=== PATIENT | male | born 1965 | race Caucasian/White ===

== ENCOUNTER → 2024-08-20 | Outpatient (CLI) | payer OTHER, SELFPAY ==
[2024-08-20 10:48] LABS: Collection Type, Urine Clean Catch
[2024-08-20 11:08] LABS: Basophils % (Auto) 0 % (0-2.5); Eosinophils # (Auto) 0.1 Thou/mm3 (0.0-0.5); Eosinophils % (Auto) 1 % (0-10); Hematocrit 39.9 % (41.0-53.0); Hemoglobin 13.4 g/dL (13.5-16.0); Immature Granulocytes % (Auto) 1 % (0-0); Immature Granulocytes Auto 0.03 Thou/mm3 (0.00-0.00); Lymphocytes # (Auto) 1.8 Thou/mm3 (1.0-4.8); Lymphocytes % (Auto) 35 % (10-50); Mean Corpuscular HGB Conc 33.6 g/dl (31.0-37.0); Mean Corpuscular Hemoglobin 27.1 pg (25.0-35.0); Mean Corpuscular Volume 81 fL (80-100); Monocytes # (Auto) 0.5 Thou/mm3 (0.0-0.8); Monocytes % (Auto) 10 % (0-12); Neutrophils # (Auto) 2.7 Thou/mm3 (1.8-7.7); Neutrophils % (Auto) 53 % (37-80); Nucleated Red Blood Cell % 0 /100 WBC (0); Platelet Count 162 Thou/mm3 (140-440); RDW Standard Deviation 41.5 fL (35.1-43.9); Red Blood Count 4.94 Miln/mm3 (4.50-5.90); White Blood Count 5.1 Thou/mm3 (3.8-10.6)
[2024-08-20 11:23] LABS: Vitamin D 25 Hydroxy Total 13.4 ng/mL (7.3-40.2)
[2024-08-20 11:26] LABS: Bilirubin,Urine Negative (Negative); Blood,Urine 1+ (Negative); Clarity,Urine Clear (Clear/Hazy); Color,Urine Lt-Yellow (Lt Yel-Yel); Culture Indicated,Urine Not Indicated; Glucose, Urine Negative (Negative); Ketones,Urine 2+ (Negative); Leukocyte Esterase,Urine Negative (Negative); Nitrite,Urine Negative (Negative); Protein,Urine Negative (Neg - Trace); RBC,Urine 5 /hpf (0-3); Specific Gravity,Urine 1.025 (1.001-1.035); Squamous Epithelial Cell,Urine 1 /hpf (0-5); Urobilinogen,Urine Negative mg/dL (0.0-1.0); WBC,Urine < 1 /hpf (0-5)
[2024-08-20 12:52] LABS: Glucose Estimated Average 137 mg/dL (80-131); Hemoglobin A1C 6.4 % Hgb (4.8-6.0)
[2024-08-20 13:59] LABS: Alanine Aminotransferase 37 U/L (10-49); Albumin, Serum 4.9 gm/dL (3.4-4.8); Albumin/Globulin Ratio 2.6 (1.2-2.2); Alkaline Phosphatase 77 U/L (46-116); Anion Gap 13 (7-16); Aspartate Amino Transferase 35 U/L (0-34); BUN/Creatinine Ratio 19 Ratio (12-20); Bilirubin,Total 0.7 mg/dL (0.3-1.2); Blood Urea Nitrogen 19 mg/dL (9-23); Calcium 9.2 mg/dL (8.3-10.6); Calcium (Corrected) 9.2 mg/dL (8.5-10.1); Carbon Dioxide 19.8 mMol/L (20.0-31.0); Cardiac Risk Estimate 3.5 RATIO (4.0-6.7); Chloride 107 mMol/L (98-107); Cholesterol 141 mg/dL (132-200); Free T4 (Free Thyroxine) 1.61 ng/dL (0.89-1.76); Globulin 1.9 gm/dL (2.3-3.5); Glucose 87 mg/dL (74-106); HDL Cholesterol 40 mg/dL (40-60); LDL Cholesterol,Calculated 83 mg/dL (0-130); Osmolality,Calculated 280 (275-295); Potassium 4.2 mMol/L (3.4-5.1); Sodium 140 mMol/L (136-145); Thyroid Stimulating Hormone 0.75 uIU/mL (0.55-4.78); Total Protein 6.8 gm/dL (5.7-8.2); Triglycerides 92 mg/dL (30-150); eGFR > 60 See Note
== END | disposition home or self-care (01) ==
LOC: COPL 10:03
PROVIDERS: PCP Registered Nurse; Referring Provider Registered Nurse; Visit Provider Registered Nurse
DX: Z00.00 Encounter for general adult medical examination without abnormal findings (principal); E03.9 Hypothyroidism, unspecified; E11.9 Type 2 diabetes mellitus without complications; E78.2 Mixed hyperlipidemia
CPT/HCPCS: 36415; 80053; 80061; 81001; 82306; 83036; 84439; 84443; 85025

== ENCOUNTER → 2024-10-24 | Outpatient (BNVA) | payer OTHER, SELFPAY | END | disposition home or self-care (01) | PROVIDERS: PCP Family Medicine; Referring Provider Family Medicine; Visit Provider Urology | DX: N40.1 Benign prostatic hyperplasia with lower urinary tract symptoms (principal); N13.8 Other obstructive and reflux uropathy; Z87.442 Personal history of urinary calculi; E78.00 Pure hypercholesterolemia, unspecified; E03.9 Hypothyroidism, unspecified | CPT/HCPCS: 81003; 99212; G0463 ==

== ENCOUNTER → 2025-02-11 | Outpatient (CLI) | payer OTHER, SELFPAY ==
--- NOTE | 2025-02-11 09:55 | XR_ITS ---
Examination: Lumbar spine, 5 views Technique: Lumbar spine AP, lateral, coned lateral lower lumbar spine, bilateral obliques 5 views Exam date and time: February 11, 2025 1003 hours INDICATIONS: Lower back pain beginning 6 weeks ago. FINDINGS: Multiple gallstones Lumbar dextroscoliosis 12 degrees Mild diffuse facet arthropathy No lumbar fracture Moderate lumbar spondylosis No significant lumbar disc narrowing IMPRESSION: No significant lumbar disc narrowing
== END | disposition home or self-care (01) ==
LOC: CDIM 09:48
PROVIDERS: PCP Registered Nurse; Referring Provider Registered Nurse; Visit Provider Registered Nurse
DX: M54.50 Low back pain, unspecified (principal)
CPT/HCPCS: 72110

== ENCOUNTER → 2025-04-27 | Outpatient (CLI) | payer OTHER, SELFPAY ==
[2025-04-27 09:35] LABS: Prostate Specific Antigen 0.77 ng/mL (0-4.00)
== END | disposition home or self-care (01) ==
LOC: COPL 08:20
PROVIDERS: PCP Family Medicine; Referring Provider Urology; Visit Provider Urology
DX: R97.20 Elevated prostate specific antigen [PSA] (principal)
CPT/HCPCS: 36415; 84153

== ENCOUNTER → 2025-05-01 | Outpatient (BNVA) | payer OTHER, SELFPAY | END | disposition home or self-care (01) | PROVIDERS: PCP Family Medicine; Referring Provider Family Medicine; Visit Provider Urology | DX: Z53.21 Procedure and treatment not carried out due to patient leaving prior to being seen by health care provider (principal) | CPT/HCPCS: 81003; 99212; G0463 ==

== ENCOUNTER 2025-05-27 14:45 | Emergency (ER) | payer OTHER, SELFPAY ==
[2025-05-27 14:50] VITALS: BP 147/82; PULSE 83; RESP 18; TEMP 36.8; O2SAT 100; BMI 23.8
--- NOTE | 2025-05-27 15:03 | EKG_ITS ---
[facility] Test Date: 2025-05-27 Pat Name: MADINA SOUSA Department: Room: - Gender: Male [employer] Att[employer]: : 1965 Requested By: Evans Betancourt Order Number: [id number] Reading MD: Evans Betancourt Measurements Intervals [place] Heart Rate: 85 P: 48 OR: 158 QRS: -5 QRSD: 106 T: 67 QT: 356 QTc: 424 Interpretive Statements SINUS RHYTHM LEFT VENTRICULAR HYPERTROPHY AND ST-T CHANGE [VOLTAGE CRITERIA PLUS ST/T ABNORMALITY] Compared to ECG 12/07/2022 10:36:24 ST (T wave) deviation now present Sinus bradycardia no longer present T-wave abnormality no longer present /store/S0/[id number].pdf
--- NOTE | 2025-05-27 15:07 | PD.EDRME ---
Rapid Medical Screening Exam RME Arrival date/time: 05/27/25 14:45 59-year-old male with a history of hypothyroidism sent in by his PCP for hemoglobin of 7.2 complaint of shortness of breath and palpitations for several days Chief Complaint: Arrhythmia/Palpitations Time Seen by Provider: 05/27/25 14:56 Vital signs: Vital Signs Temperature 98.3 F 05/27/25 14:50 Pulse Rate 83 05/27/25 14:50 Respiratory Rate 18 05/27/25 14:50 Blood Pressure 147/82 H 05/27/25 14:50 Pulse Oximetry (%) 100 05/27/25 14:50 Oxygen Delivery Method Room Air 05/27/25 14:50 Exam: - Clinical Impression: -
[2025-05-27 21:28] VITALS: BP 135/73; PULSE 57; PULSE 65; RESP 20; TEMP 36.7; O2SAT 100
[2025-05-27] MEDS: ACETAMINOPHEN 325 MG TABLET 650 MG PO (21:37)
[2025-05-27 21:53] VITALS: PULSE 60
--- NOTE | 2025-05-27 22:14 | PD.EDARRY ---
ED Arrhythmia Palp. RME/HPI General Chief Complaint: Arrhythmia/Palpitations Stated Complaint: C/O PALPITATIONS, LOW BP; SENT BY PCP Time Seen by Provider: 05/27/25 14:56 Arrival date/time: 05/27/25 14:45 RME / HPI RME / HPI narrative: 05/27/25 14:45 59-year-old male with a history of hypothyroidism sent in by his PCP for hemoglobin of 7.2 complaint of shortness of breath and palpitations for several days DR. GUERRA MAIN ED EVALUATION: Patient presenting with Hx of hemorrhoidal disease presents with ongoing palpitations, shortness of breath, and lightheadedness worsening with exertion of progressively increasing intensity over the last several weeks. Reports bright red blood per rectum which has appeared to have tapered since. Patient seen by PMD who had drawn blood work and showed sign of anemia prompting transport to ED. No hematemesis, fever, or chills PMH: Transient Ischemic Attacks, Hypercholesterolemia, Sleep Apnea, Hemorrhoids, Kidney Stones, Retinal Detachment, Hypothyroidism PSH: Vasectomy, ORIF of tibia and shoulder Allergies: NKDA Social: Negative Exam: - Impression: - Related Data Home Medications ?Medication ?Instructions ?Recorded ?Confirmed gemfibrozil 600 mg tablet 600 mg PO DAILY 12/07/22 05/01/25 aspirin 81 mg tablet,delayed 81 mg PO QDAY 04/26/23 05/01/25 release atorvastatin 40 mg tablet 40 mg PO QDAY 04/26/23 05/01/25 levothyroxine 125 mcg capsule 125 mcg PO QDAY 04/26/23 05/01/25 Previous Rx's ?Medication ?Instructions ?Recorded tamsulosin 0.4 mg capsule (Flomax) 0.4 mg PO QDAY #90 caps 05/24/23 hydrocortisone acetate 25 mg 25 mg OR QDAY Hemorrhoids #12 ea 05/27/25 rectal suppository (Anusol-HC) pantoprazole 20 mg tablet,delayed 20 mg PO QDAY #30 tabs 05/27/25 release Allergies Allergy/AdvReac Type Severity Reaction Status Date / Time No Known Allergies Allergy Verified 05/27/25 14:47 Review of Systems Review of Systems Systems Reviewed: All systems reviewed, normal except as documented Past Medical History Past Medical History NEUROLOGIC: Positive Neurological Disorders and Transient Ischemic Attacks (TIA) (x2, last September 2022) CARDIAC: Positive Cardiac Disorders and Hypercholesterolemia (trigycerides) RESPIRATORY: Positive Sleep Apnea (no cpap, could not sleep with it 15 yrs ago) GASTROINTESTINAL: Positive Gastrointestinal Disorders and Hemorrhoids GENITOURINARY: Positive Genitourinary Disorders and Kidney Stones MUSCULOSKELETAL: Positive Musculoskeletal Disorders and Fractures (Recent left shoulder sx, left leg fx) ENT: Positive Retinal Detachment (right eye) ENDOCRINE: Positive Endocrine Disorders and Hypothyroidism OTHER HISTORY: Positive Hospitalization (TIA), Shingles, Chicken Pox, Measles and Mumps Family History FAMILY HISTORY: Positive Family Cancer and Family Surgery Surgical History SURGICAL: Positive Ear Surgery, Eye Surgery (right eye for retina detachment), of Shoulder Sx, Open Reduction Internal Fixation (tibia and shoulder) and Vasectomy Social History SMOKING STATUS: Current some day smoker ED Exam Narrative Physical exam: GEN. APPEARANCE: The patient is alert awake oriented X-3 under no distress, lying down comfortably, does not look ill/toxic. Patient has good eye contact. Patient is cooperative. VITALS: All vitals were reviewed and the pulse ox is 100%, which is normal according to my interpretation HEENT: Normocephalic, atraumatic and nontender. Pupils are equal and reactive. Oral mucosa is moist. NECK: Supple, nontender, no meningismus, no JVD. There is no thyromegaly and no lymphadenopathy. CHEST: Nontender on palpation no deformity and no crepitus. CARDIOVASCULAR: Heart regular rhythm, no murmur or gallop rub or extra beats. LUNGS: Clear to auscultation bilaterally with symmetrical chest rise. No laboring tachypnea or wheezing. No intercostal subcostal retraction. No rales and no rhonchi. ABDOMEN: Soft, flat, nontender to palpation, no guarding or rebound tenderness. There are no abnormal masses palpated. No pulsatile masses or bruits. Active and normal bowel sounds. EXTREMITIES: Normal inspection and palpation. No edema. No cyanosis. Patient is able to move all 4 extremities well SKIN: Warm and dry, no rashes noted. MUSCULOSKELETAL: No lumbar or midline bony tenderness. There is no CVA tenderness. No paraspinal muscle spasm or tenderness. NEURO: Cranial nerves II through XII grossly intact. There are no focal neurologic deficits noted. GCS is 15 PSYCHIATRIC: Patient is in normal mood and affect, cooperative. LYMPHATICS: No major lymphadenopathy noted. Course Quality Measures none Orders Category Date Time Status Cdl A Driver NOW Care 05/27/25 20:58 Active Continuous Pulse Oximetry Care 05/27/25 20:58 Completed EKG (ED ONLY) *Do not use* NOW Care 05/27/25 15:05 Completed Obtain Written Consent For: NOW Care 05/27/25 20:58 Completed Transfuse,blood/blood products NOW Care 05/27/25 20:58 Active Vital Signs, Non-Routine [id number] Care 05/28/25 02:00 Ordered EKG (ED Only) Stat Exams 05/27/25 15:03 Draft Red Blood Cells Stat Lab 05/27/25 15:18 Results Type and Screen Stat Lab 05/27/25 15:18 Results Acetaminophen Tab [Tylenol Tab] Med 05/27/25 20:58 Discontinued 650 mg PO X1 ONE DiphenhydrAMINE [Benadryl] Med 05/27/25 20:58 Discontinued 25 mg PO X1 ONE Vital Signs Vital signs: Vital Signs Temperature 98.3 F 05/27/25 14:50 Pulse Rate 83 05/27/25 14:50 Respiratory Rate 18 05/27/25 14:50 Blood Pressure 147/82 H 05/27/25 14:50 Pulse Oximetry (%) 100 05/27/25 14:50 Oxygen Delivery Method Room Air 05/27/25 14:50 PROCEDURES: Stool Hemoccult Procedural Steps Taken: stool placed in appropriate test area, developer placed on stool and control areas and controls appropriately positive and negative Hemoccult result: negative Arrhythmia/Palpitations MDM Narrative MDM Narrative:: Scribe Attestation: Audra Cameron, am scribing for and in the presence of Dr. Lee. Provider Notation: Although this document has been carefully reviewed, there may still be some phonetic and other typographical errors. These errors are purely grammatical due to imperfections in the software program and should not be construed in any way to compromise the substance of the patient's medical care during this visit. Patient presenting with Hx of hemorrhoidal disease presents with ongoing palpitations, shortness of breath, and lightheadedness worsening with exertion of progressively increasing intensity over the last several weeks. Reports bright red blood per rectum which has appeared to have tapered since. Please see PE findings. Laboratory markers were essentially unremarkable with Troponin I undetectable. Patient placed on route service representative and was typed and crossed for 2 units of packed RBC. Hemoglobin verified at 7.2. Patient mildly thrombocytopenic and essentially at baseline. Placed on monitor and observed for extended period of time while transfused following pre-medication with both Benadryl and Tylenol. Patient remained hemodynamically stable throughout ED course. Will discontinue daily ASA and recommend close F/U with GI specialist for consideration of lower endoscopy. Final diagnoses include Anemia due to acute blood loss, Internal hemorrhoid, and Symptomatic anemia Patient data External records reviewed:: [facility] previous records (Reviewed prior ED records from 12/07/22. Patient was seen for Cerebrovascular accident.) Clinical information provided by:: patient Social determinants that could affect healthcare access:: none Patient has the following chronic illnesses:: Transient Ischemic Attacks, Hypercholesterolemia, Sleep Apnea, Hemorrhoids, Kidney Stones, Retinal Detachment, Hypothyroidism How is presenting disease/condition affected by chronic disease/condition?: exacerbated by Evaluation data The following diagnostics were reviewed and interpreted by me:: lab results and EKG tracing(s) (EKG at 15:12 shows normal sinus rhythm at 85 bpm, equivocal ST-T segment depression in inferior leads with ST-T wave depressions and evidence of LVH, per my interpretation.) Lab and/or radiology exams considered but not ordered:: None Interpretation Summary: See MDM above Medications / Prescriptions Medications or Prescriptions considered but not ordered:: None Medication administrations:: Medication Administration History Discontinued Medications Acetaminophen (Acetaminophen 325 Mg Tablet) 650 mg PO X1 ONE Stop: 05/27/25 20:59 Last Admin: 05/27/25 21:37 Dose: 650 mg Documented By: GOYO Diphenhydramine HCl (Diphenhydramine 25 Mg Capsule) 25 mg PO X1 ONE Stop: 05/27/25 20:59 Last Admin: 05/27/25 21:38 Dose: 25 mg Documented By: GOYO Consultations Consultation(s) initiated? (list below): No Diagnosis Differential diagnosis arrhythmia/palpitations: palpitations, anxiety and other (Anemia) Most likely diagnosis given after review of the tests above:: Anemia due to acute blood loss, Internal hemorrhoid, Symptomatic anemia Admission Indicated Admission indicated?: not indicated Explain why admission is indicated or not indicated:: Patient does not meet admission criteria Admission Request Was there a request for admission?: No Disposition Plan Disposition Plan: Discharge Discharge Attestation Discharge Attestation: The patient and all family members were given an opportunity to ask questions and understood the discharge instructions. Discharge instructions specifically effects, indications for sooner follow up or return to the emergency department, and the expected course of current diagnosis. Patient condition: Stable Critical Care Time Critical Care Time Critical Care Time: Yes Total Critical Care Time (min.): 40 Attestation: The high probability of sudden, clinically significant deterioration in the patient?s condition required the highest level of my preparedness to intervene urgently. The services I provided to this patient were to treat and/or prevent clinically significant deterioration. Services included the following: chart data review, reviewing nursing notes and/or old charts, documentation time, travel service consultant collaboration regarding findings and treatment options, medication orders and management, direct patient care, vital sign assessments and ordering, interpreting and reviewing diagnostic studies and lab tests. Aggregate critical care time includes only time during which I was engaged in work directly related to the patient?s care, as described above, whether at bedside or elsewhere in the Emergency Department. It did not include time spent performing other reported procedures or the services of residents, students, nurses or physician assistants. Discharge Plan Plan Patient Disposition: HOME (Self Care) Discharge Disposition comment: Stable Prescriptions/Referrals Prescriptions/Med Rec: New hydrocortisone acetate [Anusol-HC] 25 mg suppository 25 mg OR QDAY Qty: 12 0RF pantoprazole 20 mg tablet,delayed release (DR/EC) 20 mg PO QDAY Qty: 30 0RF No Action atorvastatin 40 mg tablet 40 mg PO QDAY levothyroxine 125 mcg capsule 125 mcg PO QDAY aspirin 81 mg tablet,delayed release (DR/EC) 81 mg PO QDAY gemfibrozil 600 mg tablet 600 mg PO DAILY Patient Comments: TAKE 1 TABLET BY MOUTH TWICE A DAY 30 MINUTES BEFORE MORNING AND EVENING MEAL tamsulosin [Flomax] 0.4 mg capsule 0.4 mg PO QDAY MDD 1 Qty: 90 0RF Referrals: Angeles Hyde MD [Primary Care Provider] - In 1 week Abdi Arreola MD [Physician, Gastroenterology] - In 1 week Referral Note: Patient with recurrent hemorrhoidal bleeding and symptomatic anemia transfused with 2 units packed red blood cells. Please assess and consider for lower endoscopy Problem List Clinical Impression: Anemia due to acute blood loss, Internal hemorrhoid, Symptomatic anemia Impression comment: Symptomatic anemia/anemia due to acute blood loss and internal hemorrhoids Patient/Caregiver Discharge Instructions Discharge Activity: activity as tolerated Diet Instructions: Clear liquid diet x 24 hours Education Materials: Anemia, ED Hemorrhoids Additional Instructions: Clear liquid diet x 24 hours. Anusol suppositories twice daily/Protonix p.o. daily. Discontinue aspirin for 48 hours. Follow-up with GI specialist within 3 to 5 days for consideration of lower endoscopy. Return if worsening Print Language: Brazilian Stand Alone Forms: Christina Award Info., Patient Portal Info Letter
[2025-05-27 22:48] VITALS: BP 108/67; PULSE 59; RESP 17; TEMP 36.7; O2SAT 100
[2025-05-27 23:07] VITALS: BP 111/66; PULSE 57; RESP 16; TEMP 36.9; O2SAT 100
[2025-05-27 23:22] VITALS: BP 111/74; PULSE 54; RESP 18; TEMP 36.2; O2SAT 100
[2025-05-28 00:04] VITALS: BP 121/71; PULSE 56; RESP 15; TEMP 36.5; O2SAT 100
[2025-05-28 00:07] VITALS: BP 121/71; PULSE 61; RESP 15; TEMP 36.5; O2SAT 100
[2025-05-28 00:22] VITALS: BP 107/53; PULSE 59; RESP 12; TEMP 36.8; O2SAT 100
[2025-05-28 00:37] VITALS: BP 115/73; PULSE 61; RESP 14; TEMP 37.1; O2SAT 100
[2025-05-28 00:49] VITALS: BP 115/73; PULSE 62; RESP 17; O2SAT 100
[2025-05-28 01:27] VITALS: BP 110/71; PULSE 52; RESP 16; TEMP 36.9; O2SAT 98
== END 2025-05-28 01:32 | disposition home or self-care (01) ==
PROVIDERS: Emergency Provider Emergency Medicine; PCP Podiatrist
DX: D62 Acute posthemorrhagic anemia (principal); K64.8 Other hemorrhoids; D69.6 Thrombocytopenia, unspecified; R94.31 Abnormal electrocardiogram [ECG] [EKG]; E78.00 Pure hypercholesterolemia, unspecified
CPT/HCPCS: 36415; 36430; 86850; 86900; 86901; 86923; 93005; 99283; P9016; A9270

== ENCOUNTER → 2025-05-27 | Outpatient (CLI) | payer OTHER, SELFPAY ==
[2025-05-27 10:37] LABS: Basophils # (Auto) 0.0 Thou/mm3 (0.0-0.2); Basophils % (Auto) 0 % (0-2.5); Eosinophils # (Auto) 0.0 Thou/mm3 (0.0-0.5); Eosinophils % (Auto) 1 % (0-10); Hematocrit 23.4 % (41.0-53.0); Immature Granulocytes Auto 0.02 Thou/mm3 (0.00-0.00); Lymphocytes # (Auto) 1.0 Thou/mm3 (1.0-4.8); Lymphocytes % (Auto) 32 % (10-50); Mean Corpuscular HGB Conc 30.8 g/dl (31.0-37.0); Mean Corpuscular Hemoglobin 24.5 pg (25.0-35.0); Mean Corpuscular Volume 80 fL (80-100); Monocytes # (Auto) 0.4 Thou/mm3 (0.0-0.8); Monocytes % (Auto) 14 % (0-12); Neutrophils # (Auto) 1.6 Thou/mm3 (1.8-7.7); Neutrophils % (Auto) 52 % (37-80); Nucleated Red Blood Cell # 0.00 Thou/mm3 (0.00-0.00); Nucleated Red Blood Cell % 0 /100 WBC (0); Platelet Count 135 Thou/mm3 (140-440); RDW Standard Deviation 42.4 fL (35.1-43.9); Red Blood Count 2.94 Miln/mm3 (4.50-5.90); White Blood Count 3.1 Thou/mm3 (3.8-10.6)
[2025-05-27 10:38] LABS: Hemoglobin 7.2 g/dL (13.5-16.0)
[2025-05-27 10:48] LABS: Alanine Aminotransferase 13 U/L (10-49); Albumin, Serum 4.8 gm/dL (3.4-4.8); Albumin/Globulin Ratio 2.4 (1.2-2.2); Alkaline Phosphatase 70 U/L (46-116); Anion Gap 9 (7-16); Aspartate Amino Transferase 15 U/L (0-34); BUN/Creatinine Ratio 15 Ratio (12-20); Bilirubin,Total 0.4 mg/dL (0.3-1.2); Blood Urea Nitrogen 17 mg/dL (9-23); Calcium 9.1 mg/dL (8.3-10.6); Calcium (Corrected) 9.1 mg/dL (8.5-10.1); Carbon Dioxide 23.3 mMol/L (20.0-31.0); Chloride 108 mMol/L (98-107); Creatinine (Component) 1.1 mg/dL (0.6-1.3); Globulin 2.0 gm/dL (2.3-3.5); Glucose 134 mg/dL (74-106); Osmolality,Calculated 282 (275-295); Potassium 3.9 mMol/L (3.4-5.1); Sodium 140 mMol/L (136-145); Thyroid Stimulating Hormone 1.28 uIU/mL (0.55-4.78); Total Protein 6.8 gm/dL (5.7-8.2); Troponin I 0.030 ng/mL (0.0-0.045); eGFR > 60 See Note
[2025-05-27 11:23] LABS: Glucose Estimated Average 137 mg/dL (80-131); Hemoglobin A1C 6.4 % Hgb (4.8-6.0)
== END | disposition home or self-care (01) ==
LOC: COPL 09:21
PROVIDERS: PCP Internal Medicine; Referring Provider Internal Medicine; Visit Provider Internal Medicine
DX: R07.9 Chest pain, unspecified (principal); E03.9 Hypothyroidism, unspecified; E11.9 Type 2 diabetes mellitus without complications; E78.1 Pure hyperglyceridemia
CPT/HCPCS: 36415; 80053; 83036; 84443; 84484; 85025

== ENCOUNTER → 2025-05-28 | Outpatient (CLI) | payer OTHER, SELFPAY ==
[2025-05-28 17:08] LABS: Basophils # (Auto) 0.0 Thou/mm3 (0.0-0.2); Basophils % (Auto) 0 % (0-2.5); Eosinophils # (Auto) 0.0 Thou/mm3 (0.0-0.5); Eosinophils % (Auto) 1 % (0-10); Hematocrit 30.3 % (41.0-53.0); Hemoglobin 9.9 g/dL (13.5-16.0); Immature Granulocytes Auto 0.01 Thou/mm3 (0.00-0.00); Immature Reticulocyte Fraction 24.3 % (2.3-13.4); Lymphocytes # (Auto) 1.6 Thou/mm3 (1.0-4.8); Lymphocytes % (Auto) 31 % (10-50); Mean Corpuscular HGB Conc 32.7 g/dl (31.0-37.0); Mean Corpuscular Hemoglobin 26.5 pg (25.0-35.0); Mean Corpuscular Volume 81 fL (80-100); Monocytes # (Auto) 0.5 Thou/mm3 (0.0-0.8); Monocytes % (Auto) 10 % (0-12); Neutrophils # (Auto) 3.0 Thou/mm3 (1.8-7.7); Neutrophils % (Auto) 58 % (37-80); Nucleated Red Blood Cell # 0.00 Thou/mm3 (0.00-0.00); Nucleated Red Blood Cell % 0 /100 WBC (0); Platelet Count 139 Thou/mm3 (140-440); RDW Standard Deviation 43.8 fL (35.1-43.9); Red Blood Count 3.74 Miln/mm3 (4.50-5.90); Reticulocyte % (Auto) 2.0 % (0.5-1.5); Reticulocyte Absolute Auto 72.9 Biln/L (25.0-75.0); Reticulocyte Hgb Content 19.6 pg (28.0-35.0); White Blood Count 5.2 Thou/mm3 (3.8-10.6)
[2025-05-28 17:15] LABS: Ferritin 5 ng/mL (10.5-307.3); Folate 23.76 ng/mL (>5.38); Iron 20 mcg/dL (65-175); Percent Iron Saturation 4 % (20-55); Total Iron Binding Capacity 433 mcg/dL (250-425); Unsaturated Iron Binding 413 (225-295); Vitamin B12 240 pg/mL (211-911)
[2025-05-28 17:57] LABS: Path Review Blood Smear Sent to Pathologist
== END | disposition home or self-care (01) ==
PROVIDERS: PCP Internal Medicine; Referring Provider Internal Medicine; Visit Provider Internal Medicine
DX: D64.9 Anemia, unspecified (principal); D72.819 Decreased white blood cell count, unspecified
CPT/HCPCS: 36415; 82607; 82728; 82746; 83540; 83550; 85025; 85046

== ENCOUNTER → 2025-06-15 | Outpatient (BNVA) | payer OTHER, SELFPAY | END | disposition home or self-care (01) | PROVIDERS: PCP Family Medicine; Referring Provider Family Medicine; Visit Provider Urology | DX: K62.5 Hemorrhage of anus and rectum (principal); N40.1 Benign prostatic hyperplasia with lower urinary tract symptoms; N13.8 Other obstructive and reflux uropathy; N20.0 Calculus of kidney | CPT/HCPCS: 81003; 99212; G0463 ==

== ENCOUNTER → 2025-06-22 | Outpatient (CLI) | payer OTHER, SELFPAY ==
[2025-06-22 12:59] LABS: Basophils # (Auto) 0.0 Thou/mm3 (0.0-0.2); Basophils % (Auto) 0 % (0-2.5); Eosinophils # (Auto) 0.0 Thou/mm3 (0.0-0.5); Eosinophils % (Auto) 1 % (0-10); Hematocrit 36.1 % (41.0-53.0); Hemoglobin 11.4 g/dL (13.5-16.0); Immature Granulocytes Auto 0.04 Thou/mm3 (0.00-0.00); Lymphocytes # (Auto) 1.6 Thou/mm3 (1.0-4.8); Lymphocytes % (Auto) 25 % (10-50); Mean Corpuscular HGB Conc 31.6 g/dl (31.0-37.0); Mean Corpuscular Hemoglobin 26.5 pg (25.0-35.0); Mean Corpuscular Volume 84 fL (80-100); Monocytes # (Auto) 0.7 Thou/mm3 (0.0-0.8); Monocytes % (Auto) 10 % (0-12); Neutrophils # (Auto) 4.2 Thou/mm3 (1.8-7.7); Neutrophils % (Auto) 64 % (37-80); Nucleated Red Blood Cell # 0.00 Thou/mm3 (0.00-0.00); Nucleated Red Blood Cell % 0 /100 WBC (0); Platelet Count 149 Thou/mm3 (140-440); RDW Standard Deviation 60.0 fL (35.1-43.9); Red Blood Count 4.30 Miln/mm3 (4.50-5.90); White Blood Count 6.6 Thou/mm3 (3.8-10.6)
== END | disposition home or self-care (01) ==
LOC: COPL 12:10
PROVIDERS: PCP Internal Medicine; Referring Provider Internal Medicine; Visit Provider Internal Medicine
DX: D64.9 Anemia, unspecified (principal)
CPT/HCPCS: 36415; 85025